=== PATIENT | female | born 1960 | race Native Hawaiian/Other Pacific Islander ===

== ENCOUNTER 2018-05-22 13:09 | Inpatient (IN) | payer BC, OTHER ==
[~2018-05-22] VITALS: Ht 154.9 cm; Wt 85.5 kg
[2018-05-22] VITALS (11 sets, daily range): BP systolic 111–143; BP diastolic 54–82; TEMP 97.2–98.6; Ht 154.9 cm; Wt 85.5 kg
--- NOTE | 2018-05-22 16:55 | NUR ---
RECIEVED PT TO ICU, DIRECT ADMIT TO DR MENDOZA FROM [facility] IN [place]. PT ALERT ORIENTED FAMILY MEMBERS HERE WITH PT. DR MENDOZA ON HIS WAY. ADMITTED WITH DVT LEFT LEG, BILAT PE'S, SHORT OF BREATH, HX A FIB. PT ORIENTED TO ICU. PLACED ON MONITOR, ORIENTED TO ICU.
--- NOTE | 2018-05-22 17:15 | NUR ---
DR MENDOZA HERE TALKING WITH PT AND FAMILY RECIEVED ORDERS. PT TO START ON HEPARIN DRIP. RECIEVED ORDERS FOR LABS PT, PTT CBC. LABS DRAWN. IV HEPLOCK STARTED BY STUDENT NURSE LUI X 1 STICK PT ROSELYN WELL.
[2018-05-22 18:00] LABS: PLATELET COUNT 400 K/uL (152-353)
[2018-05-22 18:36] LABS: PARTIAL THROMBOPLASTIN TIME 25.4 SECONDS (24.5-33.6)
--- NOTE | 2018-05-22 18:36 | NUR ---
PT RESTING IN BED ADMISSION ASSESSEMENT DONE DENIES PAIN ORDERED DINNER TRAY PT TO BE ON STRICT BEDREST PER DR MENDOZA PT UNDERSTANDS.
--- NOTE | 2018-05-22 20:00 | NUR ---
PT IS A 58 YEAR OLD WHITE FEMALE ADMITTED WITH BILATERAL PE TO BOTH LUNGS AND LEFT DVT. PT IS RECEIVING HEPARIN AT 12.8 UNITS PER HOUR VIA PUMP. PT WAS INSTRUCTED ON USE OF INCENTIVE SPIROMETER.
--- NOTE | 2018-05-22 20:32 | NUR ---
PT SITTING UP ON SIDE OF BED. CM WITH PACER BEATS. PT STATES THAT SHE IS FEELING STRONGER. VS WITHIN NORMAL LIMITS.
[2018-05-23] VITALS (21 sets, daily range): BP systolic 115–148; BP diastolic 58–89; TEMP 98.3–98.4
--- NOTE | 2018-05-23 01:47 | NUR ---
LAB HERE TO DRAW PTT. DRAWN FROM RIGHT ANTECUBITAL AREA.
--- NOTE | 2018-05-23 03:15 | NUR ---
PT PRESENTLY IS RESTING WITH EYES CLOSED. CM WITH SR. HEPARIN DRIP WAS TURN OFF AT 0230 AM. RATE OF DRIP IS TO DECREASE TO 11.4 UNITS AN HOUR. HEPARIN TO BE TURNED BACK ON AT 330 AM.
--- NOTE | 2018-05-23 03:37 | NUR ---
HEPARIN TURNED BACK ON AT 0330AM . RATE DECREASED TO 11.4.
--- NOTE | 2018-05-23 07:26 | NUR ---
PT RESTING QUIETLY IN LF, ASSISTED TO USE BEDPAN & WITH PERICARE. PT C/O THOMPSON.MEDICATED WITH TYLENOL 650 MG PO.
[2018-05-23 07:58] LABS: POTASSIUM 3.3 mmol/L (3.6-5.2)
--- NOTE | 2018-05-23 08:08 | NUR ---
DR MENDOZA IN TO SEE PT. NO NEW ORDERS AT THIS TIME.
[2018-05-23 08:42] LABS: PLATELET COUNT 365 K/uL (152-353)
--- NOTE | 2018-05-23 09:25 | NUR ---
PT RESTING QUIETLY ON L SIDE HOB UP. HEPARIN DRIP DECREASED TO 10.4 ML/HR PER PROTOCOL.
--- NOTE | 2018-05-23 11:30 | NUR ---
PT ASSISTED TO BEDPAN,BM,PERICARE PER LUI RASHEED. PT REFUSED BATH AT THIS TIME'MAYBE LATER' PER PT.
--- NOTE | 2018-05-23 12:10 | NUR ---
AT BS , CONSERNED BECAUSE PT'S 'VOICE IS LOW & SHE ACTS LIKE ITS HARD TO SPEAK'. PT EVALUATED,O2 SAT 97% ON ROOM AIR,RR RATE 16. PT REFUSED TO WEAR O2, 'NOT RIGHT NOW' PER PT.PT'S VOICE IS LOW,'MY MOUTH IS DRY PER PT'. FLUID ENCOURAGED,REPORTED ALL TO DR CEASAR MENDOZA. NO NEW ORDERS AT THIS TIME'WILL COME BACK BY TO CK ON HER THIS PM'.
--- NOTE | 2018-05-23 14:15 | NUR ---
PT TALKING WITH FAMILY,SPEECH STRONGER, PT HAS NAPPED & HAS FED SELF LUNCH.
--- NOTE | 2018-05-23 15:06 | NUR ---
BATH & PERSONAL CARE PER LIZ RASHEED. BLOOD DRAWN & TO LAB. PT REFUSED TO HAVE LINEN CHANGED AT THIS TIME.
[2018-05-23] MEDS ORDERED: CLARINEX5 MG PO (15:12)
[2018-05-23] MEDS ORDERED: DILTIAZEM HCL240 M2 PO (15:13)
[2018-05-23] MEDS ORDERED: HYDR25TA60 PO (15:14)
[2018-05-23] MEDS ORDERED: NEURONTIN 100M100 MG PO (15:14)
[2018-05-23] MEDS ORDERED: IBANDRONATE PO (15:15)
[2018-05-23] MEDS ORDERED: MINOCYCLINE100 M1 PO (15:16)
[2018-05-23] MEDS ORDERED: OMEP40CA PO (15:43)
[2018-05-23] MEDS ORDERED: POTASSIUM CHLO10 MEQ PO (15:46)
--- NOTE | 2018-05-23 17:45 | NUR ---
PT ASSISTED TO USE BEDPAN, PERICARE & LINEN CHANGE. PT WATCHING TV.
--- NOTE | 2018-05-23 18:00 | NUR ---
PT REFUSED DINNER,'WILL HAVE BRING ME SOMETHING'.
[2018-05-23] MEDS ORDERED: ASA LOW DOSE81 MG PO (19:08)
--- NOTE | 2018-05-23 19:20 | NUR ---
PT AWAKE WITH NO DISTRESS OR SOB NOTED, DR. MENDOZA AT BEDSIDE TALKING WITH PT. WILL MONITOR CLOSELY.
--- NOTE | 2018-05-23 20:00 | NUR ---
PT AWAKE, ALERT, AND ORIENTED X4 SITTING IN BED IN POSITION OF COMFORT WITH NO S/S OF PAIN OR DISTRESS NOTED TALKING WITH FAMILY WHO ARE AT BEDSIDE, DENIES ANY PAIN OR PROBLEMS AT THIS TIME, SKIN WARM AND DRY, RADIAL AND PEDAL PULSES INTACT/EVEN, NOTE SOME SWELLING TO L LOWER LEG/ANKLE AREA, LUNGS CLEAR TO AUSCULTATION BUT DIMINISHED IN L LOWER, RESP RATE 18-20 NONLABORED, ON ROOM AIR WITH SAT OF 97%, VITALS BEING MONITORED Q 1 HOUR, FLUTE TEACHER IN USE WITH RATE IN 80s SR, 20G IV INTACT TO L HAND WITH NO PROBLEMS NOTED TO SITE WITH NS INFUSING AND HEPARIN DRIP INFUSING PER ORDERS, PERRL. ENCOURAGED TO CALL NEEDED, RAILS UP, BED IN LOW POSITION.
--- NOTE | 2018-05-23 22:04 | NUR ---
PTT PER LAB IS 47.9, INCREASED DRIP 0.5ML TO RATE OF 10.9ML/HR. WILL DO ANOTHER PTT IN 6 HOURS.
[2018-05-24] VITALS (22 sets, daily range): BP systolic 120–157; BP diastolic 50–86; TEMP 98.3–99
--- NOTE | 2018-05-24 00:18 | NUR ---
PT RESTING IN POSITIO OF COMFORT WITH EYES CLOSED AND LIGHT SNORING NOTED AT TIMES, NO S/S OF PAIN OR DISTRESS NOTED, RESP RATE 18 NONLABORED, ON ROOM AIR WITH SAT OF 98%, 20G IV INTACT TO L HAND WITH NO PROBLEMS NOTED TO SITE WITH NS AND HEPARIN DRIP ONGOING PER ORDERS, SKIN WARM AND DRY, AROUSES BRIEFLY AND DENIES ANY PROBLEMS OR NEEDS AT THIS TIME, ORDER DISPATCHER IN USE, VITALS BEING MONITORED, WILL MONITOR, RAILS UP, BED IN LOW POSITION.
--- NOTE | 2018-05-24 02:20 | NUR ---
PT CONTINUES TO REST WITH EYES CLOSED, NO S/S OF PAIN OR DISTRESS NOTED, RESP RATE NONLABORED ON ROOM AIR, 20G IV INTACT TO L HAND WITH NS INFUSING AND HEPARIN DRIP WITH NO PROBLEMS NOTED TO SITE, LAND ECONOMIST IN USE WITH RATE OF 75, VITALS BEING MONITORED Q 1 HOUR, WILL CONTINUE TO MONITOR CLOSELY, RAILS UP X3, BED IN LOW POSITION, CALL LIGHT IN REACH.
--- NOTE | 2018-05-24 04:12 | NUR ---
PT RESTING IN BED WITH EYES CLOSED, NO S/S OF PAIN OR DISTRESS NOTED, RESP RATE NONLABORED, ON ROOM AIR, IV INTACT TO L HAND WITH NS AND HEPARIN DRIP ONGOING, VITALS BEING MONITORED, CLOTHES IRONER IN USE, WILL MONITOR CLOSELY, RAILS UP, BED IN LOW POSITION.
--- NOTE | 2018-05-24 05:08 | NUR ---
HAVE NOT GOT BACK PT'S PTT RESULTS THAT WERE TAKEN TO LAB AROUND 0350, CALLED LAB AND THEY STATE THAT THE COMPTER SYSTEM WHEN DOWN AND THEY JUST GOT IT WORKING AGAIN AND THE PTT IS RUNNING NOW.
--- NOTE | 2018-05-24 05:26 | NUR ---
FINALLY GOT PTT RESULTS FROM LAB AT 523, PTT WAS 43.9, INCREASED RATE ON HEPARIN DRIP O.5 ML, DRIP RATE IS NOW 11.4 ML/HR. .
--- NOTE | 2018-05-24 06:00 | NUR ---
PT RESTING WITH EYES CLOSED AND NO S/S OF PAIN OR DISTRESS NOTED, RESP RATE NONLABORED/NORMAL, ON ROOM AIR, IV INTACT WITH NS AND HEPARIN DRIP ONGOING, VITALS BEING MONITORED, MANUFACTURING PLANT MANAGER IN USE WITH RATE OF 76, WILL CONTINUE TO MONITOR CLOSELY, RAILS UP, BED IN LOW POSITION.
--- NOTE | 2018-05-24 08:15 | NUR ---
RADIOLOGY IN TO DO US.
--- NOTE | 2018-05-24 08:50 | NUR ---
PT ASSISTED TO USE BEDPAN,BM & VOID. PERICARE.
--- NOTE | 2018-05-24 09:50 | NUR ---
PT RESTING IN SF, DENIES PAIN.LABS DRAWN & TO LAB.
--- NOTE | 2018-05-24 10:24 | NUR ---
HEPARIN DRIP INCREASED BY 0.5ML TO 11.9ML/HR PER PROTOCOL.
--- NOTE | 2018-05-24 10:32 | NUR ---
PT C/O THOMPSON# 6 ON A PAIN SCALE. MEDICATED WITH TYLENOL 650MG PO.
--- NOTE | 2018-05-24 10:45 | NUR ---
MESSAGE LEFT FOR DR MENDOZA TO CALL R/T TO US REPORT.
--- NOTE | 2018-05-24 12:25 | NUR ---
DR MENDOZA IN TO SEE PT. NEW BRIAN.
--- NOTE | 2018-05-24 14:30 | NUR ---
PT RESTING WITH EYES CLOSED. FAMILY AT .
--- NOTE | 2018-05-24 16:23 | NUR ---
bath & personal care,linen change, lab draw.
--- NOTE | 2018-05-24 16:44 | NUR ---
HEPARIN DRIP INCREASED BY 0.5ML TO 12.4 ML/HR PER PROTOCOL.
--- NOTE | 2018-05-24 18:15 | NUR ---
PT SITTING UP FEEDING SELF DINNER. FAMILY AT BS.
--- NOTE | 2018-05-24 19:52 | NUR ---
PT AWAKE TALKING WITH DAUGHTER AND WHO ARE AT BEDSIDE, DENIES ANY PAIN OR OTHER PROBLEMS AT THIS TIME, NO S/S OF DISTRESS NOTED, SKIN WARM AND DRY, RADIAL AND PEDAL PULSES INTACT/EVEN, PERRL, RESP RATE 20 NONLABORED BUT PT DOES STATES SHE STILL GETS SOB AT TIMES WHILE MOVING AROUND ALOT IN BED, NO SOB NOTED AT THIS TIME, LUNGS CLEAR TO AUSCULTATION BUT NOTE DIMINISHED IN L LOWER LOBE, BS+, 20G IV INTACT TO L HAND WITH NO PROBLEMS NOTED TO SITE WITH NS INFUSING AT 75ML/HR AND HEPARIN DRIP AT 12.4ML/HR, SUPERVISOR GRAPHITE IN USE WITH RATE 80-90s SR, SOME SWELLING STILL NOTED TO L LOWER LEG AND ANKLE AREA WHEN COMPARED TO R LEG, PT DENIES ANY NEEDS AT THIS TIME, PT'S FAMILY BROUGHT HER SMALL SNACK TO EAT SINCE SHE DID NOT EAT MUCH SUPPER. ENCOURAGED TO CALL NEEDED, RAILS UP, BED IN LOW POSITION, WILL MONITOR CLOSELY.
--- NOTE | 2018-05-24 22:00 | NUR ---
PT RESTING IN BED WITH EYES CLOSED, NO S/S OF PAIN OR DISTRESS NOTED, RESP RATE NONLABORED, ON ROOM AIR WITH SAT OF 100%, IV INTACT WITH NS AND HEPARIN DRIP ONGOING, DEVELOPMENT PROFESSIONAL IN USE WITH RATE 80-90s SR, VITALS BEING MONITORED, WILL MONITOR CLOSELY, RAILS UP X3, BED IN LOW POSITION.
--- NOTE | 2018-05-24 23:05 | NUR ---
LAB RESULTS BACK, PTT IS 50. NO CHANGE IN HEPARIN DRIP PER PROTOCOL, DRIP CONTINUES TO INFUSE AT 12.4ML/HR. WILL MONITOR CLOSELY.
--- NOTE | 2018-05-24 23:11 | NUR ---
PT USED BEDPAN AND URINATED 40ML YELLOW URINE. C/O "DULL PAIN" TO L SHOULDER AND STATES PAIN GOES THRU TO BACK OF SHOULDER, DENIES ANY SOB OR OTHER PROBLEMS, NO ACUTE DISTRESS NOTED. ADX TYLENOL 650MG PO PRN FOR PT'S PAIN, WILL MONITOR CLOSELY, RAILS UP, BED IN LOW POSITION, ENCOURAGED PT TO CALL FOR ANY INCREASED PAIN OR SOB.
[2018-05-25] VITALS (15 sets, daily range): BP systolic 98–157; BP diastolic 59–93; TEMP 98–98.8
--- NOTE | 2018-05-25 00:02 | NUR ---
PT RESTING WITH EYES CLOSED, NO S/S OF PAIN OR DISTRESS NOTED, NO REACTIONS NOTED TO PRN TYLENOL, RESP RATE 18-16 NONLABORED, ON ROOM AIR, 20G IV INTACT TO L HAND WITH NO PROBLEMS NOTED TO SITE WITH NS INFUSING AT 75ML/HR AND HEPARIN DRIP AT 12.4ML/HR, LOSS PREVENTION AGENT IN USE, VITALS BEING MONITORED, PT REMAINS ON BEDREST, REPOSITIONED SELF TO R SIDE, WILL MONITOR, RAILS UP, BED IN LOW POSITION.
--- NOTE | 2018-05-25 04:20 | NUR ---
PT RESTING IN BED WITH EYES CLOSED AND SNORING NOTED, NO S/S OF PAIN OR DISTRESS NOTED, IV INTACT, RESP RATE NONLABORED, TURBINE INSPECTOR IN USE, VITALS BEING MONITORED Q 1 HOUR, WILL CONTINUE TO MONITOR CLOSELY, RAILS UP X3, BED IN LOW POSITION.
--- NOTE | 2018-05-25 05:20 | NUR ---
PT AWAKE AND ORIENTED X4 SITTING UP IN POSITION OF COMFORT USING INCENTIVE SPIROMETER AND WATCHING TV. PT JUST URINATED AND ASSISTED TO CLEAN PT UP(PT USING DEPEND PER REQUEST DUE TO SHE STATES DOES NOT WANT TO USE THE BEDPAN, SHE KEEPS MISSING THE BEDPAN WHEN SHE URINATES AND IT GETS THE BED WET), PT REPOSITIONED SELF IN BED, 20G IV INTACT TO L HAND WITH NO PROBLEMS NOTED TO SITE WITH INFUSING AT 75ML/HR AND HEPARIN DRIP INFUSING AT 12.4ML/HR, RESP RATE NONLABORED, ON ROOM AIR WITH SAT OF 96%, STOCK HANDLER IN USE, SKIN WARM AND DRY, APPEARS THAT SWELLING IN L LOWER LEG/ANKLE MAY BE IMPROVING SLIGHTLY. PT C/O CONSTANT PAIN TO L SHOULDER THAT SHE STATES IS FROM "LAYING IN BED" AND RATES HER PAIN A "6". GAVE TYLENOL 650MG PO PRN PER PT REQUEST FOR HER PAIN. NO ACUTE DISTRESS NOTED, WILL MONITOR CLOSELY, RAILS UP X3, BED IN LOW POSITION, ENCOURAGED TO CALL NEEDED.
--- NOTE | 2018-05-25 06:24 | NUR ---
LAB RESULTS BACK. PTT IS 46.8, INCREASED HEPARIN DRIP 0.5ML/HR PER PROTOCOL (12.9ML/HR), PT RESTING WITH EYES CLOSED AND NO DISTRESS NOTED, IV INTACT WITH FLUID ONGOING, RESP RATE NONLABORED ON ROOM AIR, WILL MONITOR, RAILS UP X3, BED IN LOW POSITION.
--- NOTE | 2018-05-25 07:30 | NUR ---
IV IN LT HAND BLEEDING. REMOVED ALL TAPE AND CLEANED IV SITE. IV WNL AND FLUSHED FREELY WITH 10ML NS. SECURED AGAIN WITH TAPE AND TEGADERM.
--- NOTE | 2018-05-25 07:40 | NUR ---
DR. MENDOZA HERE AT THIS TIME TO EXAMINE PATIENT.
--- NOTE | 2018-05-25 07:55 | NUR ---
AMBULATED WELL TO RESTROOM WITH MINIMAL ASSISTANCE. VERBALIZED SLIGHT TIGHTNESS, NOT DISCOMFORT, TO LT CALF AREA.
--- NOTE | 2018-05-25 08:55 | NUR ---
ASSISTED TO ROOM 1121 FOR SHOWER. TOLERATED WELL.
--- NOTE | 2018-05-25 10:15 | NUR ---
DAUGHTER HERE TO VISIT AT THIS TIME.
--- NOTE | 2018-05-25 11:00 | NUR ---
ASSISTED FROM CHAIR TO BED PER REQUEST.
--- NOTE | 2018-05-25 13:43 | NUR ---
RECEIVED PT FROM ICU TO ROOM 1109. PT ALERT AND ORIENTED X3. LUNG SOUNDS CLEAR THROUGHOUT. BOWEL SOUNDS PRESENT. NO EDEMA NOTED TO LOWER EXTREMITIES. 20G NOTED TO PTS LEFT HAND SALINE LOCKED. PT AMBULATED TO BED FROM . NAD NOTED. WILL CONTINUE TO MONITOR.
--- NOTE | 2018-05-25 13:55 | NUR ---
TRANSFERED PATIENT TO ROOM 1109. REPORT GIVEN TO ANIVAL DORADO RN.
[2018-05-26 00:33] VITALS: BP 137/66; TEMP 98.4
[2018-05-26 04:30] VITALS: BP 148/88; TEMP 98.2
[2018-05-26 05:25] LABS: PLATELET COUNT 377 K/uL (152-353)
[2018-05-26 05:35] LABS: POTASSIUM 3.4 mmol/L (3.6-5.2)
[2018-05-26 07:55] VITALS: BP 153/55; TEMP 98.3
--- NOTE | 2018-05-26 11:17 | NUR ---
IV D/C'D PER DOCTORS ORDERS. DISCHARGE INSTRUCTIONS AND RX GIVEN. PT AND PTS FAMILY VERBALIZES THE UNDERSTANDING OF ALL INSTRUCTIONS. PT IS TO FOLLOW UP WITH HER PCP IN 1-2 WEEKS AND ALSO SCHEDULE AN APPOINTMENT WITH A VASCULAR SURGEON. PT LEFT VIA WC VIA POV. NAD NOTED. FAMILY AT SIDE.
== END 2018-05-26 11:15 | disposition home or self-care (01) | DRG 176 ==
LOC: CT 13:09 → MED/SURG 16:23 → ICU 16:23 → MED/SURG 05-25 13:43
PROVIDERS: ADMIT Student in an Organized Health Care Education/Training Program
DX: I26.99 Other pulmonary embolism without acute cor pulmonale (principal); I82.432 Acute embolism and thrombosis of left popliteal vein; I82.412 Acute embolism and thrombosis of left femoral vein; Z86.711 Personal history of pulmonary embolism; R06.02 Shortness of breath; I48.91 Unspecified atrial fibrillation; I10 Essential (primary) hypertension; E87.6 Hypokalemia
CPT/HCPCS: 36415; 80048; 80053; 82565; 83735; 83785; 84520; 85027; 85610; 85730; 94760; J1644; J3475; J3490; Q9963

== ENCOUNTER 2018-06-06 15:02 | Outpatient (CLI) | payer BC, OTHER ==
[~2018-06-06 15:02] MED LIST: ASA LOW DOSE81 MG PO; CLARINEX5 MG PO; DILTIAZEM HCL240 M2 PO; HYDR25TA60 PO; IBANDRONATE PO; MINOCYCLINE100 M1 PO; NEURONTIN 100M100 MG PO; OMEP40CA PO; POTASSIUM CHLO10 MEQ PO
== END 2018-06-06 22:23 | disposition home or self-care (01) ==
LOC: RESP 15:02
DX: R06.02 Shortness of breath (principal)